=== PATIENT | male | born 1985 | race Caucasian/White ===

== ENCOUNTER 2018-08-08 15:05 | Emergency (ER) | payer OTHER, MEDICAID ==
[~2018-08-08] VITALS: Ht 180.3 cm; Wt 90.7 kg
[~2018-08-08 15:05] MED LIST: ACID CONTROL75 MG; CONCERTA54 MG; HYCODAN SYRUP480 ML PO; INTUNIV3 MG PO; SINGULAIR 10 MG10 M1
[2018-08-08] MEDS ORDERED: NEXIUM40 MG PO (15:22)
[2018-08-08] MEDS ORDERED: NAPROSYN500 MG PO (15:25)
[2018-08-08] MEDS ORDERED: ZOLOFT25 MG PO (15:25)
[2018-08-08] MEDS ORDERED: TRAMADOL 50 MG50 MG PO (16:00)
[2018-08-08 16:11] VITALS: BP 125/87
== END 2018-08-08 16:25 | disposition home or self-care (01) ==
LOC: M.ERS 15:05
DX: M25.532 Pain in left wrist (principal); M25.561 Pain in right knee; F90.9 Attention-deficit hyperactivity disorder, unspecified type; Z88.8 Allergy status to other drugs, medicaments and biological substances